=== PATIENT | male | born 1970 | race Two or more races ===

== ENCOUNTER 2018-07-04 10:11 | Emergency (ER) | payer SELFPAY ==
[~2018-07-04] VITALS: Ht 160 cm; Wt 72.6 kg
[2018-07-04 10:11] VITALS: BP 132/75
--- NOTE | 2018-07-04 10:11 | NUR ---
ED Nurse Note: brought by RA 29 from home due to CP that started this morning. 162 ASA and 2 NTG given by EMS. pt c/o high blood pressure and blurred vision. off bp meds for 2 weeks. ermd on bedside. pt arrived with gauge 18 iv on left ac. will continue to monitor.
[2018-07-04] MEDS ORDERED: LORazepam 1mg tab ORAL ONE (10:30)
--- NOTE | 2018-07-04 10:33 | Emergency Room Report ---
History of Present Illness General Chief Complaint: Chest Pain Source: Patient, EMS Present Illness HPI 47-year-old male with history of hypertension, reports he was in the shower this morning started feeling palpitations chest tightness as well as tingling sensation down his left arm and around his lips, he reports he felt slightly short of breath, he deines syncope, denies hemoptysis, abdominal pain, any other symptoms. He does report that he twisted his right ankle yesterday, otherwise been in usual state of health but didn't take his BP med this AM (can' t recall which med he takes). He does report intermittent blurred vision, he called EMS, they gave him aspirin and sublingual nitroglycerin and he reports his symptoms are improved since then. Allergies: Coded Allergies: PENICILLINS (Verified Allergy, Unknown, 07/04/18) Patient History Past Medical History: see triage record Reviewed Nursing Documentation: PMH: Agreed; PSxH: Agreed Nursing Documentation-PMH Past Medical History: No History, Except For Hx Hypertension: Yes Review of Systems All Other Systems: negative except mentioned in HPI Physical Exam Vital Signs Date Time Temp Pulse Resp B/P (MAP) Pulse Ox O2 Delivery O2 Flow Rate FiO2 07/04/18 10:03 98.1 100 18 132/75 98 Room Air Sp02 EP Interpretation: reviewed, normal General Appearance: no apparent distress, alert, non-toxic Head: normocephalic Eyes: bilateral eye normal inspection, bilateral eye PERRL, bilateral eye EOMI ENT: normal ENT inspection, hearing grossly normal, normal pharynx, no angioedema, normal voice, moist mucus membranes Neck: normal inspection, full range of motion, supple, supple/symm/no masses Respiratory: chest non-tender, lungs clear, normal breath sounds, chest symmetrical, palpation of chest normal Cardiovascular #1: normal peripheral pulses, regular rate, rhythm Cardiovascular #2: 2+ radial (R), 2+ radial (L), 2+ dorsalis pedis (R), 2+ dorsalis pedis (L) Gastrointestinal: normal inspection, non tender, soft, no mass, no guarding, no rebound Rectal: deferred Genitourinary: normal inspection, no CVA tenderness Musculoskeletal: back normal, gait/station normal, normal range of motion, non- tender, no calf tenderness, Korin's Sign negative Neurologic: alert, responsive, choker hooker III-XII nml as tested, motor strength/tone normal, sensory intact, speech normal Psychiatric: judgement/insight normal, memory normal, mood/affect normal, anxious Skin: normal color, no rash, warm/dry, normal turgor Lymphatic: no adenopathy Medical Decision Making Diagnostic Impression: Primary Impression: Chest pain ER Course Patient is a 47yo M nonsmoker, no h/o DM, no FH of premature CAD, but does have a grandmother who he reports had an [place] in 60's or 70's. He appears anxious, and I suspect anxiety-mediated symptoms. He twisted his R ankle yesterday but exam of ankle normal and korin's sign negative. He was given ASA and NTG by EMS , and here I gave 1mg PO ativan. Patient symptoms resolved, his soft nontender abdomen, labs other than slightly elevated liver enzymes are unremarkable, he was explained this needs to be further evaluated by his PMD, he understands and agrees, he also understands return for recurrent pain, shortness of breath, any new symptoms, but feels better now, I suspect anxiety mediated symptoms, will discharge. He understands he needs to follow-up with his PMD in 2-3 days for reevaluation. EKG Diagnostic Results EKG Time: 10:18 EP Interpretation: no stemi Rate: normal Rhythm: NSR ST Segments: no acute changes ASA given to the pt in ED: Yes Rhythm Strip Diag. Results Rhythm Strip Time: 10:30 EP Interpretation: yes Rate: 111 Rhythm: NSR, no PVC's, no ectopy Chest X-Ray Diagnostic Results Chest X-Ray Diagnostic Results : Chest X-Ray Ordered: Yes # of Views/Limited/Complete: 1 View Indication: Chest Pain EP Interpretation: Yes Interpretation: no consolidation, no effusion, no pneumothorax, no acute cardiopulmonary disease Impression: No acute disease Electronically Signed by: Mich Reyes MD Last Vital Signs Date Time Temp Pulse Resp B/P (MAP) Pulse Ox O2 Delivery O2 Flow Rate FiO2 07/04/18 10:03 98.1 100 18 132/75 98 Room Air Disposition: HOME, SELF-CARE Condition: Improved Scripts Unable to Obtain Active Prescriptions or Reported Meds MICH REYES M.D Jul 04, 2018 10:32
[2018-07-04 10:36] LABS: BASOPHILS % (AUTO) 0.5 % (0.0-2.0); HEMATOCRIT 47.6 % (42.0-52.0); HEMOGLOBIN 16.2 G/DL (14.2-18.0); LYMPHOCYTES % (AUTO) 21.3 % (20.0-45.0); MEAN CORPUSCULAR VOLUME 91 FL (80-99); MONOCYTES % (AUTO) 7.3 % (1.0-10.0); NEUTROPHILS % (AUTO) 69.9 % (45.0-75.0); PLATELET COUNT 200 K/UL (150-450); RED BLOOD COUNT 5.24 M/UL (4.70-6.10); RED CELL DISTRIBUTION WIDTH 11.9 % (11.6-14.8); WHITE BLOOD COUNT 13.4 K/UL (4.8-10.8)
--- NOTE | 2018-07-04 10:45 | NUR ---
ED Nurse Note: test and turn up technician on bedside.
--- NOTE | 2018-07-04 10:50 | NUR ---
ED Nurse Note: pt was reassessed with the chest pain and pt stated that he feels better now and the pain goes down to 5/10. will continue to monitor
[2018-07-04 10:54] VITALS: BP 126/64
[2018-07-04 10:58] LABS: ANION GAP 14 mmol/L (5-15); BLOOD UREA NITROGEN 10 mg/dL (7-18); CALCIUM 8.5 MG/DL (8.5-10.1); CARBON DIOXIDE 24 MMOL/L (21-32); CHLORIDE 100 MMOL/L (98-107); CREATININE 0.8 MG/DL (0.55-1.30); POTASSIUM 3.9 MMOL/L (3.5-5.1); SODIUM 138 MMOL/L (136-145)
[2018-07-04 11:09] LABS: ALANINE AMINOTRANSFERASE 80 U/L (12-78); ALBUMIN 3.8 G/DL (3.4-5.0); ALBUMIN/GLOBULIN RATIO 0.9 (1.0-2.7); ALKALINE PHOSPHATASE 89 U/L (46-116); ASPARTATE AMINO TRANSFERASE 68 U/L (15-37); BILIRUBIN,TOTAL 0.3 MG/DL (0.2-1.0)
[2018-07-04 12:24] VITALS: BP 103/55
[2018-07-04 12:43] VITALS: BP 103/55
--- NOTE | 2018-07-04 12:43 | NUR ---
ER DISCHARGE NOTE: Patient is cleared to be discharged per ERMD, pt is aox4, on room air, with stable vital signs. pt was given dc instructions, pt was able to verbalize understanding, pt id band and iv site removed without complications. pt is able to ambulate with steady gait. pt took all belongings.
--- NOTE | 2018-07-04 19:15 | Diagnostic Imaging Report ---
Indication: Chest pain Comparison: None A single view chest radiograph was obtained. Findings: Cardiomediastinal appearance is within normal limits for age. The lungs are clear. Pulmonary vascularity is appropriate. The diaphragmatic contour is smooth and costophrenic angles are sharp. No pleural effusions are identified. The bones are unremarkable. Impression: No acute findings
--- NOTE | 2018-07-05 15:05 | Cardiology Report ---
APPROVED REPORT EKG Measurement Heart [id number] HI [id number] [id number] Sinus tachycardia Otherwise normal ECG
== END 2018-07-04 12:43 | disposition home or self-care (01) ==
LOC: EDBD 10:11 → EMR 10:36
DX: R07.9 Chest pain, unspecified (principal); R00.2 Palpitations; I10 Essential (primary) hypertension; Z88.0 Allergy status to penicillin
CPT/HCPCS: 36415; 71045; 80053; 83880; 84484; 85025; 93005; 99283